=== PATIENT | female | born 1960 | race Two or more races ===

== ENCOUNTER 2016-09-03 10:13 | Outpatient (CLI) | payer BC ==
[2016-09-03 13:49] LABS: ALBUMIN/GLOBULIN RATIO 1.3 (1.0-2.2); BILIRUBIN,TOTAL 1.1 mg/dL (0.2-1.0); BUN - BLOOD UREA NITROGEN 17 mg/dL (6-20); CALCIUM 9.5 mg/dL (8.5-10.3); CARBON DIOXIDE - CO2 28 mmol/L (21-32); CHLORIDE 103 mmol/L (101-111); CHOLESTEROL 218 mg/dL; CREATININE 0.8 mg/dL (0.4-1.0); GFR - MDRD 75 (>89); GLUCOSE 90 mg/dL (70-100); HDL CHOLESTEROL 54 mg/dL; LDL/HDL RATIO 2.9 (<4.4); POTASSIUM 3.8 mmol/L (3.5-5.0); SODIUM 138 mmol/L (135-145); TOTAL PROTEIN 7.3 g/dL (6.7-8.2); TRIGLYCERIDES 41 mg/dL; VLDL CHOLESTEROL 8 mg/dL
== END 2016-09-03 10:14 | disposition home or self-care (01) ==
LOC: LAB.N 10:13
PROVIDERS: ATTEND Family Medicine
DX: E78.5 Hyperlipidemia, unspecified (principal)
CPT/HCPCS: 36415; 80053; 80061

== ENCOUNTER 2017-01-06 07:59 | Outpatient (CLI) | payer BC ==
--- NOTE | 2017-01-07 19:37 | Mammography Report ---
DIGITAL SCREENING MAMMOGRAM: 01/06/2017 CLINICAL INDICATION: A 56-year-old for screening. COMPARISON: 11/2015, 02/2013, 10/2010, 06/2009. TECHNIQUE: Routine CC and MLO projections were obtained of the breasts. The breasts demonstrate heterogeneously dense fibroglandular parenchyma bilaterally. Punctate, typic ally benign calcifications are present. No suspicious masses, clustered microcalcifications, or jessica ons of architectural distortion are identified. IMPRESSION: BENIGN FINDINGS. RECOMMENDATION: ROUTINE ANNUAL SCREENING UNLESS OTHERWISE CLINICALLY INDICATED. BIRADS CATEGORY: 2, BENIGN FINDINGS. STANDARD QUALIFYING STATEMENTS 1. This examination was reviewed with the aid of Computed-Aided Detection (CAD). 2. A negative or benign imaging report should not delay biopsy if clinically suspicious findings are present. Consider surgical consultation if warranted. More than 5% of cancers are not identified b y imaging. 3. Dense breasts may obscure an underlying neoplasm. JOB #: [id number] EXT JOB #:[id number]
== END 2017-01-06 08:00 | disposition home or self-care (01) ==
LOC: DI.N 07:59
PROVIDERS: ATTEND Obstetrics & Gynecology
DX: Z12.31 Encounter for screening mammogram for malignant neoplasm of breast (principal)
CPT/HCPCS: 77067

== ENCOUNTER 2017-07-28 08:25 | Outpatient (CLI) | payer OTHER ==
--- NOTE | 2017-07-28 12:48 | XRAY Report ---
RIGHT HAND, THREE VIEWS: 07/28/2017 HISTORY: Pain. COMPARISON: No comparisons. FINDINGS: No fracture, malalignment, joint space narrowing, bone destruction, radiopaque foreign body or other abnormality. IMPRESSION: NEGATIVE THREE VIEW RIGHT HAND. TD: 07/28/2017 12:46
== END 2017-07-28 08:26 | disposition home or self-care (01) ==
LOC: DI.N 08:25
PROVIDERS: ATTEND Family Medicine
DX: M79.644 Pain in right finger(s) (principal); M79.641 Pain in right hand

== ENCOUNTER 2017-09-02 08:00 | Outpatient (CLI) | payer OTHER ==
[2017-09-02 12:34] LABS: BASOPHILS % (AUTO) 0.6 %; EOSINOPHILS # (AUTO) 0.3 10^3/uL (0.0-0.7); EOSINOPHILS % (AUTO) 5.4 %; HGB - HEMOGLOBIN 13.2 g/dL (12.0-16.0); LYMPHOCYTES # (AUTO) 1.5 10^3/uL (1.5-3.5); LYMPHOCYTES % (AUTO) 29.1 %; MEAN CORPUSCULAR HEMOGLOBIN 30.8 pg (27.0-31.0); MEAN CORPUSCULAR HGB CONC 33.6 g/dL (32.0-36.0); MEAN CORPUSCULAR VOLUME 91.5 fL (81.0-99.0); MEAN PLATELET VOLUME 10.5 fL (7.9-10.8); MONOCYTES # (AUTO) 0.4 10^3/uL (0.0-1.0); MONOCYTES % (AUTO) 8.6 %; NEUTROPHILS # (AUTO) 2.9 10^3/uL (1.5-6.6); NEUTROPHILS % (AUTO) 56.3 %; PLT - PLATELET COUNT 130 10^3/uL (130-450); RED CELL DISTRIBUTION WIDTH 13.5 % (12.0-15.0); WHITE BLOOD COUNT 5.2 x10^3/uL (4.8-10.8)
[2017-09-02 13:17] LABS: ALBUMIN 3.8 g/dL (3.2-5.5); ALBUMIN/GLOBULIN RATIO 1.3 (1.0-2.2); ALKALINE PHOSPHATASE 72 IU/L (42-121); ALT ALANINE AMINOTRANSFERASE 13 IU/L (10-60); AST ASPARTATE AMINOTRANSFERASE 18 IU/L (10-42); BILIRUBIN,TOTAL 1.1 mg/dL (0.2-1.0); BUN - BLOOD UREA NITROGEN 14 mg/dL (6-20); CALCIUM 8.8 mg/dL (8.5-10.3); CARBON DIOXIDE - CO2 29 mmol/L (21-32); CHLORIDE 105 mmol/L (101-111); CHOLESTEROL 180 mg/dL; CREATININE 0.6 mg/dL (0.4-1.0); GFR - MDRD 104 (>89); GLUCOSE 90 mg/dL (70-100); HDL CHOLESTEROL 60 mg/dL; SODIUM 138 mmol/L (135-145); TOTAL PROTEIN 6.8 g/dL (6.7-8.2)
[2017-09-02 13:38] LABS: LDL CHOLESTEROL,DIRECT 119 mg/dL
== END 2017-09-02 08:01 | disposition home or self-care (01) ==
LOC: LAB.N 08:00
PROVIDERS: ATTEND Family Medicine
DX: E78.5 Hyperlipidemia, unspecified (principal)
CPT/HCPCS: 36415; 80053; 80061; 83721; 85025

== ENCOUNTER 2018-01-10 08:22 | Outpatient (CLI) | payer OTHER ==
--- NOTE | 2018-01-11 09:20 | Mammography Report ---
Reason: SCREENING MAMMO Procedure Date: 01/10/2018 Accession Number: [id number] / [id number] Procedure: MGN - Screening Mammo Dig Bilat CPT Code: FULL RESULT: EXAM: Screening Mammo Dig Bilat DATE: 01/10/2018 9:19 AM CLINICAL HISTORY: 57-year-old female presents for screening mammogram. TECHNIQUE: Bilateral CC and MLO views were obtained. COMPARISON: 01/06/2017, 12/04/2015, 11/28/2014, 03/10/2013. FINDINGS: The breasts demonstrate heterogeneously dense fibroglandular parenchyma bilaterally. Typically benign coarse calcifications are seen in both breasts. No suspicious masses, clustered microcalcifications, or regions of architectural distortion are identified. IMPRESSION: Benign findings RECOMMENDATION: Routine annual screening unless otherwise clinically indicated. BIRADS CATEGORY 2: Benign findings STANDARD QUALIFYING STATEMENTS: 1. This examination was reviewed with the aid of Computer-Aided Detection (CAD). 2. A negative or benign imaging report should not delay biopsy if clinically suspicious findings are present. Consider surgical consultation if warranted. More than 5% of cancers are not identified by imaging. 3. Dense breasts may obscure an underlying neoplasm. 4. This examination was reviewed without the aid of 3D breast imaging (tomosynthesis).
== END 2018-01-10 08:23 | disposition home or self-care (01) ==
LOC: DI.N 08:22
DX: Z12.31 Encounter for screening mammogram for malignant neoplasm of breast (principal)
CPT/HCPCS: 77067

== ENCOUNTER 2018-12-29 10:12 | Outpatient (CLI) | payer OTHER ==
--- NOTE | 2018-12-30 08:28 | Mammography Report ---
Reason: SCREENING MAMMO Procedure Date: 12/29/2018 Accession Number: [id number] / [id number] Procedure: MGN - Screening Mammo Dig Bilat CPT Code: Final Report FULL RESULT: EXAM: Screening Mammo Dig Bilat DATE: 12/29/2018 10:51 AM CLINICAL HISTORY: Screening encounter. TECHNIQUE: (B) - Bilateral CC and MLO views were obtained. COMPARISON: 01/10/2018 through 07/10/2009. PARENCHYMAL PATTERN: (D) - The breast(s) demonstrate(s) heterogeneously dense fibroglandular parenchyma. FINDINGS: There are no suspicious masses, calcifications, or areas of distortion. IMPRESSION: Negative examination. BI-RADS category 1. RECOMMENDATION: (ANNUAL) - Recommend routine annual screening mammography. BI-RADS CATEGORY: (1) - Negative. STANDARD QUALIFYING STATEMENTS: 1. This examination was not reviewed with the aid of Computer-Aided Detection (CAD). 2. A negative or benign imaging report should not preclude biopsy if clinically suspicious findings are present. 3. Dense breasts may obscure an underlying neoplasm. 4. This examination was reviewed without the aid of 3D breast imaging (tomosynthesis).
== END 2018-12-29 10:13 | disposition home or self-care (01) ==
LOC: DI.N 10:12
DX: Z12.31 Encounter for screening mammogram for malignant neoplasm of breast (principal)
CPT/HCPCS: 77067

== ENCOUNTER 2019-02-04 15:33 | Emergency (ER) | payer OTHER ==
--- NOTE | 2019-02-04 16:06 | ED Physician Documentation ---
PD HPI HEADACHE - Stated complaint Stated Complaint: DARBY - Chief complaint Chief Complaint: General - History obtained from History obtained from: Patient - History of Present Illness Timing - onset: How many days ago (3) Timing - onset during: Rest Timing - duration: Days (3) Timing - details: Gradual onset, Still present, Waxing and waning Worst headache ever?: No: Worst headache ever? Location: Left Quality: Throbbing Associated symptoms: No: Fever, Stiff neck, Nausea, Vomiting, Weakness, Numbness, Syncope, Seizure, Eye pain, Vision changes Improved by: Rest, Meds Worsened by: Moving, Other (stooping) Contributing factors: No: Anticoagulated, Possible carbon monoxide Similar symptoms before: Has not had sx before Recently seen: Clinic - Additional information Additional information: 58-year-old previously well female has developed a headache in the left side of her head that is worse with stooping. She states the headache is throbbing in nature involves the scalp on the left side of her head and she denies any other specific complaints she does not have any nausea or vomiting with this she does not have any photophobia or double vision or change in her vision she denies any numbness or weakness. She did take some ibuprofen and had some improvement in her headache. She denies any rash to her skin. She has had shingles previously around the waist on the right side. She is been given a shingles vaccination this year. She has been into see her primary care doctor on the of this month for that reason. Review of Systems Constitutional: denies: Fever Eyes: denies: Loss of vision, Decreased vision, Photophobia, Discharge, Irritation Ears: denies: Ear pain Nose: denies: Rhinorrhea / runny nose, Congestion Throat: denies: Sore throat Cardiac: denies: Chest pain / pressure, Palpitations Respiratory: denies: Dyspnea, Cough GI: denies: Abdominal Pain, Nausea, Vomiting : denies: Dysuria, Frequency Skin: denies: Rash, Lesions Musculoskeletal: denies: Neck pain, Back pain, Extremity pain Neurologic: reports: Headache. denies: Generalized weakness, Focal weakness, Numbness, Head injury, LOC PD PAST MEDICAL HISTORY - Past Medical History Cardiovascular: None Respiratory: Tuberculosis Endocrine/Autoimmune: None GI: None : None HEENT: Chronic vision loss Psych: None Musculoskeletal: None Derm: None - Present Medications Home Medications: Ambulatory Orders Medication Instructions Recorded Confirmed No Known Home Medications 02/04/19 02/04/19 - Allergies Allergies/Adverse Reactions: Allergies Allergy/AdvReac Type Severity Reaction Status Date / Time No Known Drug Allergies Allergy Verified 02/04/19 15:39 - Social History Smoking Status: Never smoker PD ED PE NORMAL - Vitals Vital signs reviewed: Yes (hypertensive ) - General General: Alert and oriented X 3, No acute distress, Well developed/nourished - HEENT HEENT: Atraumatic, PERRL, EOMI, Ears normal, Moist mucous membranes, Pharynx benign, Dentition benign, Other (There is no rash or change to the skin of the scalp ) - Neck Neck: Supple, no meningeal sign, No bony TTP - Cardiac Cardiac: RRR, No murmur - Respiratory Respiratory: No respiratory distress, Clear bilaterally - Derm Derm: Normal color, Warm and dry, No rash - Extremities Extremities: No deformity, No edema - Neuro Neuro: Alert and oriented X 3, 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, No motor deficit, No sensory deficit, Normal speech Eye Opening: Spontaneous Motor: Obeys Commands Verbal: Oriented GCS Score: 15 - Psych Psych: Normal mood, Normal affect Results - Vitals Vitals: Vital Signs - 24 hr 02/04/19 15:37 Temperature 36.5 C Heart Rate 65 Respiratory 18 Rate Blood Pressure 167/80 H O2 Saturation 99 Oxygen O2 Source Room air - Rads (name of study) CT head w/o Radiology: Prelim report reviewed (Impression: No acute intracranial abnormality.), EMP read indepedently, See rad report Procedures - IVC sono (time) 1600 Bedside IVC sono: IVC measures (cm) (1.53), Euvolemia PD MEDICAL DECISION MAKING - ED course Complexity details: reviewed old records, reviewed results, re-evaluated patient, considered differential, d/w patient ED course: 58-year-old female with acute left sided throbbing headache does not usually have a headache and she has taken some ibuprofen before coming to the emergency department her similar symptoms are some better. She has not had any syncopal episode with this and my suspicion for aneurysm is low. She has persistence of symptoms and she has no other specific explanation for her headache. She denies any caffeine use she denies any dehydration we checked her for dehydration she is not dehydrated she does not appear to have any sinus disease or otitis and she does not appear to have shingles. We have done CT scan of the head without findings. 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
--- NOTE | 2019-02-04 17:15 | CT Report ---
Reason: left sided throbbing headache Procedure Date: 02/04/2019 Accession Number: [id number] / [id number] Procedure: CT - HEAD WO CPT Code: Final Report FULL RESULT: EXAM: CT HEAD EXAM DATE: 02/04/2019 04:43 PM. CLINICAL HISTORY: Left sided throbbing headache. COMPARISON: None. TECHNIQUE: Multiaxial CT images were obtained from the foramen magnum to the vertex. Reformats: Sagittal and coronal. IV contrast: None. In accordance with CT protocol optimization, one or more of the following dose reduction techniques were utilized for this exam: automated exposure control, adjustment of mA and/or KV based on patient size, or use of iterative reconstructive technique. FINDINGS: Parenchyma: No intraparenchymal hemorrhage. No evidence of mass, midline shift, or CT findings of infarction. Mittal-white differentiation is distinct. Extraaxial Spaces: Normal for age. The sella is partially filled with CSF. No subdural or epidural collections identified. Ventricles: Normal in size and position. Sinuses and Orbits: Imaged paranasal sinuses, orbits, and mastoids show no significant abnormality. Bones: No evidence of fracture or calvarial defect. Other: None. IMPRESSION: No acute intracranial abnormality. RADIA
[2019-02-04 17:31] VITALS: BP 151/86
== END 2019-02-04 17:41 | disposition home or self-care (01) ==
LOC: ED 15:33
DX: G44.039 Episodic paroxysmal hemicrania, not intractable (principal)
CPT/HCPCS: 70450; 99284

== ENCOUNTER 2020-01-03 08:00 | Outpatient (CLI) | payer OTHER ==
[2020-01-03 12:18] LABS: BASOPHILS % (AUTO) 0.4 %; EOSINOPHILS # (AUTO) 0.2 10^3/uL (0.0-0.7); EOSINOPHILS % (AUTO) 2.9 %; HGB - HEMOGLOBIN 13.9 g/dL (12.0-16.0); LYMPHOCYTES # (AUTO) 1.5 10^3/uL (1.5-3.5); LYMPHOCYTES % (AUTO) 21.5 %; MEAN CORPUSCULAR HEMOGLOBIN 30.3 pg (27.0-31.0); MEAN CORPUSCULAR HGB CONC 33.3 g/dL (32.0-36.0); MEAN PLATELET VOLUME 12.2 fL (7.9-10.8); MONOCYTES # (AUTO) 0.6 10^3/uL (0.0-1.0); MONOCYTES % (AUTO) 8.3 %; NEUTROPHILS # (AUTO) 4.6 10^3/uL (1.5-6.6); NEUTROPHILS % (AUTO) 66.6 %; PLT - PLATELET COUNT 144 10^3/uL (130-450); RED BLOOD COUNT 4.58 10^6/uL (4.20-5.40); RED CELL DISTRIBUTION WIDTH 12.9 % (12.0-15.0); WHITE BLOOD COUNT 6.8 x10^3/uL (4.8-10.8)
[2020-01-03 12:27] LABS: BUN - BLOOD UREA NITROGEN 22 mg/dL (6-20); CARBON DIOXIDE - CO2 29 mmol/L (21-32); CHLORIDE 101 mmol/L (101-111); SODIUM 139 mmol/L (135-145)
[2020-01-03 12:28] LABS: ALBUMIN 4.2 g/dL (3.2-5.5); ALBUMIN/GLOBULIN RATIO 1.4 (1.0-2.2); ALKALINE PHOSPHATASE 75 IU/L (42-121); ALT ALANINE AMINOTRANSFERASE 16 IU/L (10-60); AST ASPARTATE AMINOTRANSFERASE 20 IU/L (10-42); BILIRUBIN,TOTAL 1.1 mg/dL (0.2-1.0); CALCIUM 9.3 mg/dL (8.5-10.3); CHOL/HDL RATIO 3.2 (<4.4); CHOLESTEROL 186 mg/dL; CREATININE 0.8 mg/dL (0.4-1.0); GLUCOSE 100 mg/dL (70-100); HDL CHOLESTEROL 59 mg/dL; TOTAL PROTEIN 7.1 g/dL (6.7-8.2)
== END 2020-01-03 23:59 | disposition home or self-care (01) ==
LOC: LAB.WCP 08:00
PROVIDERS: ATTEND Nurse Practitioner Family
DX: Z00.00 Encounter for general adult medical examination without abnormal findings (principal)
CPT/HCPCS: 36415; 80053; 80061; 83721; 84443; 85025

== ENCOUNTER 2020-02-12 08:47 | Outpatient (CLI) | payer OTHER ==
--- NOTE | 2020-02-12 14:43 | Mammography Report ---
BILATERAL DIGITAL SCREENING MAMMOGRAM 3D/2D: 02/12/2020 CLINICAL: Routine screening. Comparison is made to exams dated: 12/29/2018 mammogram, 01/10/2018 mammogram, 01/06/2017 mammogram, 12/04/2015 mammogram, 11/28/2014 mammogram, and 11/04/2010 mammogram - [facility]. T he tissue of both breasts is heterogeneously dense. This may lower the sensitivity of mammography. No significant masses, calcifications, or other findings are seen in either breast. There has been no significant interval change. IMPRESSION: NEGATIVE There is no mammographic evidence of malignancy. A 1 year screening mammogram is recommended. This exam was interpreted at Station ID: [id number]. NOTE: For mammograms, a report in lay terms will be sent to the patient. Approximately 15% of breast malignancies will not be visualized mammographically. In the management of a palpable breast mass, a negative mammogram must not discourage biopsy of a clinically suspicious lesion. Electronically Signed By: Mercedes kerr/michael:02/12/2020 09:39:30 ACR BI-RADS Category 1: Negative [id number] PARENCHYMAL PATTERN: (D) - The breast(s) demonstrate(s) heterogeneously dense fibroglandular kyra martins. BI-RADS CATEGORY: (1) - 1 RECOMMENDATION: (ANNUAL) - Recommend routine annual screening mammography. [id number] 1 year screening LATERALITY: (B)
== END 2020-02-12 08:48 | disposition home or self-care (01) ==
LOC: DI.N 08:47
DX: Z12.31 Encounter for screening mammogram for malignant neoplasm of breast (principal)
CPT/HCPCS: 77067

== ENCOUNTER 2020-07-12 08:00 | Outpatient (CLI) | payer OTHER | END 2020-07-12 08:01 | disposition home or self-care (01) | LOC: LAB.N 08:00 | PROVIDERS: ATTEND Family Medicine | DX: N39.0 Urinary tract infection, site not specified (principal) | CPT/HCPCS: 87086 ==